=== PATIENT | male | born 1955 | race African-American/Black ===

== ENCOUNTER 2022-03-09 21:35 | Emergency (ER) | payer MEDICAID, OTHER ==
[~2022-03-09] VITALS: Ht 172.7 cm; Wt 77.0 kg
[2022-03-09 21:38] VITALS: BP 163/94
[2022-03-09] MEDS ORDERED: LIDOCAINE HCL/PF 1% 10 MG/ML 5ML VIAL INFIL ONE (22:30)
[2022-03-09] MEDS ORDERED: BACITRACIN ZINC OINT UDPKT TOP ONE (22:30)
[2022-03-09] MEDS ORDERED: ACETAMINOPHEN 325MG TABLET PO ONE (22:30)
[2022-03-09] MEDS ORDERED: TETANUS, DIPHTHERIA, PERTUSSIS VAC/PF 0.5ML (>10YR OLD) IM ONE (22:30)
== END 2022-03-10 01:00 | disposition home or self-care (01) ==
LOC: ER 21:35
DX: S01.411A Laceration without foreign body of right cheek and temporomandibular area, initial encounter (principal); I10 Essential (primary) hypertension; Y00.XXXA Assault by blunt object, initial encounter; Y93.89 Activity, other specified; Y92.811 Bus as the place of occurrence of the external cause
CPT/HCPCS: 12013; 70450; 70486; 90471; 90715; 99284; J3490

== ENCOUNTER 2022-03-19 18:32 | Emergency (ER) | payer MEDICAID ==
[~2022-03-19] VITALS: Ht 170.2 cm; Wt 80.0 kg
[2022-03-19 18:43] VITALS: BP 129/79
== END 2022-03-19 21:10 | disposition home or self-care (01) ==
LOC: ER 18:32
DX: Z48.00 Encounter for change or removal of nonsurgical wound dressing (principal); I10 Essential (primary) hypertension
CPT/HCPCS: 99281